=== PATIENT | female | born 1965 | race African-American/Black ===

== ENCOUNTER → 2016-06-17 | Outpatient (CLI) | payer MEDICARE, MEDICAID ==
[~2016-06-17] MED LIST: CALTTAB PO; CYCL5TAB PO; HYDR-3516 PO; IBUP800T23 PO; PRIM250T5 PO; TRAM50TA PO
--- NOTE | 2016-06-17 19:09 | MG ---
cc: GISELA PETERSEN MD Lab No: Date: 06/17/2016 Age: Sex: F Race: EEG NUMBER [id number] DATE OF 1965 INDICATION A 51-year-old, history of seizures, poly frequency EEG with increased beta frequencies noted occurring in a generalized fashion. Otherwise 7-9 Hz posterior rhythm. Paroxysmal bursts of 2 Hz delta activity occurring by a synchronous fashion. Myogenic artifact noted. Did go into stage II sleep with attenuation slowing of background, increased spindle type of activity. Small sharp wave almost spike wave appearance noted in the frontal channels epoch 52. Reasonable driving with photic stimulation. Frontal myogenic artifact noted towards the latter part of the recording. Single lead EKG showing sinus rhythm. INTERPRETATION Poly frequency EEG which may be secondary to psychotropic medications, awake sleep state. Mild nonspecific change in the frontal region noted. No active seizures. Clinical correlation. Gisela Petersen MD MG/KK /5:41 PM /6:58 PM
== END ==
LOC: HEEG 07:36
PROVIDERS: ATTEND Psychiatry & Neurology Neurology
DX: S06.0X0A Concussion without loss of consciousness, initial encounter (principal)
CPT/HCPCS: 95819

== ENCOUNTER 2016-07-28 08:48 | Emergency (ER) | payer MEDICARE, OTHER ==
[~2016-07-28] VITALS: Ht 180.3 cm; Wt 85.0 kg
[~2016-07-28 08:48] MED LIST changes: -IBUP800T23 PO
[2016-07-28 08:51] VITALS: BP 111/70; PULSE 79; RESP 16; TEMP 98.2; O2SAT 100
--- NOTE | 2016-07-28 09:08 | PD ---
HPI . Left arm pain for over 3 weeks Chief Complaint: Pain: Acute or Chronic Time Seen by Provider: 09:08 Travel History International Travel<30 days: No Contact w/Intl Traveler<30days: No Traveled to known affect area: No History of Present Illness HPI 51-year-old female with history of seizures and chronic pain here with complaints of left arm pain. Patient tells me that she follows with Dr. Goetz for her seizures and chronic pain. She is complaining of left upper arm pain that started approximately 3 weeks ago. She has not seen Dr. Goetz for this. She does not exactly have a primary care provider and says that she only uses Dr. Goetz for her issues. She denies any mechanism of injury. She 's pointing to pain deep within the arm and thinks it could possibly be arthritis. Last seizure > 3 years ago. PFSH Past Medical History Autoimmune Disease: Yes (HX HIV; PT DENIES) Blood Disorders: No Cancer: No Cardiovascular Problems: No Diminished Hearing: No Endocrine: No Gastrointestinal Disorders: Yes Genitourinary: No Immune Disorder: No Implanted Vascular Access Dvce: No Musculoskeletal: No Neurologic: Yes Psychiatric: No Reproductive: No Respiratory: No Seizures: Yes Ulcer: Yes PNEUMOCCOCAL Vaccine (Year): 1 ?: Not : 4 Para: 1 Miscarriage: 3 : 0 Ovarian Cysts: Yes (FIBROID TUMORS REMOVED) Tubal Ligation: Yes Past Surgical History Abdominal Surgery: Yes (REMOVAL OF FIBROID TUMOR BILATERAL TUBAL INTERRUPTION) AICD: No Hysterectomy: Yes Pacemaker: No Other Surgery: No Social History Alcohol Use: No Tobacco Use: No Substance Use: No Allergies-Medications (Allergen,Severity, Reaction): Coded Allergies: Aspirin (Verified Allergy, Intermediate, UPSET STOMACH, 07/28/16) Morphine (Verified Adverse Reaction, Intermediate, HIVES, 07/28/16) Reported Meds & Prescriptions Reported Meds & Active Scripts Active Ibuprofen 800 Mg Tab 800 Mg PO TID Caltrate 600+D (Calcium Carbonate-Cholecalciferol) 600-800 Mg-Unit Tab 1 Tab PO BID Reported Primidone 250 Mg Tab 250 Mg PO TID Flexeril (Cyclobenzaprine HCl) 5 Mg Tab 5 Mg PO TID Hydrocodone-Acetaminophen 5-325 mg Tab 1 Tab PO Q6H PRN Review of Systems General / Constitutional: No: Fever Eyes: No: Visual changes HENT: No: Headaches Cardiovascular: No: Chest Pain or Discomfort Respiratory: No: Shortness of Breath Gastrointestinal: No: Abdominal Pain Genitourinary: No: Dysuria Musculoskeletal: Positive: Pain (left arm pain) Skin: No Rash Neurologic: No: Weakness Psychiatric: No: Depression Endocrine: No: Polydipsia Hematologic/Lymphatic: No: Easy Bruising Physical Exam Narrative GENERAL: AAO x 3, no acute distress, Well-nourished, well-developed patient. SKIN: Warm and dry. No visible rashes or bruising. HEAD: Normocephalic and atraumatic. EYES: No scleral icterus. No injection or drainage. ENT: No nasal drainage noted. Airway patent. NECK: Supple, trachea midline. No JVD. CARDIOVASCULAR: Regular rate and rhythm without murmurs, gallops, or rubs. RESPIRATORY: Breath sounds equal bilaterally. No accessory muscle use. No rhonchi or rales. GASTROINTESTINAL: Visual inspection normal EXTREMITIES: No cyanosis or edema. Full range of motion bilateral arms. Tenderness to palpation in the left arm out of proportion to palpation. Hands move without difficulty. BACK: Nontender without obvious deformity. No CVA tenderness. PSYCH: AAO x 3, normal affect. Data Data Last Documented VS Vital Signs Date Time Temp Pulse Resp B/P Pulse Ox O2 Delivery O2 Flow Rate FiO2 07/28/16 08:51 98.2 79 16 111/70 100 MDM Medical Decision Making Medical Screen Exam Complete: Yes Emergency Medical Condition: Yes Medical Record Reviewed: Yes Differential Diagnosis left arm pain, OA, less likely fracture, drug seeking behavior Narrative Course 51-year-old female with history of seizures and chronic pain here with complaints of left arm pain. Patient tells me that she follows with Dr. Goetz for her seizures and chronic pain. She is complaining of left upper arm pain that started approximately 3 weeks ago. She has not seen Dr. Goetz for this. She does not exactly have a primary care provider and says that she only uses Dr. Goetz for her issues. She denies any mechanism of injury. She 's pointing to pain deep within the arm and thinks it could possibly be arthritis. Patient seen and examined. On examination she does not have any significant findings for explanation of her left arm pain. She does not have any cardiac symptoms or other complaints. I do not believe she has a fracture, however I discussed with her that I will go ahead and check an x-ray to rule out any type of bony abnormality. We discussed pain medications and she is wanting to know if I will provide her with Lortab. She is requesting a refill as she ran out of her medications. I explained to her that I'm not able to refill these meds and she declined the x -ray. She says, "If you aint' gonna give me lortabs, I might as well go." I explained if there is a fracture, I will provide analgesia. She then says, "I know it's not broken." I offered her Ibuprofen 800 mg for inflammation and she agreed. I advised her to follow-up with Dr. Goetz for further refills on her pain medications. Patient verbalized understanding of instructions, questions were answered, and thanked me for their care. I advised them if their condition worsens, please return to the nearest emergency room for further care. Diagnosis Primary Impression: Arm pain, left Patient Instructions: General Instructions Additional Instructions: Please return to emergency department if your symptoms return or worsen. Follow up with your primary care provider. Take medications as prescribed. Med/Other Pt SpecificInfo: Prescription(s) given Scripts Ibuprofen 800 Mg Qol587 Mg PO TID #21 TAB Prov:Bre Landis MD 07/28/16 Disposition: 01 DISCHARGE HOME Condition: Stable Dana Romero Jul 28, 2016 09:08
[2016-07-28] MEDS ORDERED: IBUP800T23 PO (09:13)
== END 2016-07-28 09:30 | disposition home or self-care (01) ==
LOC: NEPK 08:48
DX: M79.602 Pain in left arm (principal); R56.9 Unspecified convulsions
CPT/HCPCS: 99283

== ENCOUNTER 2016-10-02 20:20 | Emergency (ER) | payer MEDICARE, OTHER ==
[~2016-10-02] VITALS: Ht 167.6 cm; Wt 82.0 kg
[~2016-10-02 20:20] MED LIST changes: +IBUP800T23 PO; -TRAM50TA PO
[2016-10-02 20:23] VITALS: BP 115/76; PULSE 76; RESP 15; TEMP 98.4; O2SAT 99
--- NOTE | 2016-10-02 21:08 | PD ---
HPI Chief Complaint: Wound/Suture/Staple Re-Check Time Seen by Provider: 20:51 Travel History International Travel<30 days: No Contact w/Intl Traveler<30days: No Traveled to known affect area: No History of Present Illness HPI Patient comes in requesting sutures removed from her left lower extremity were placed 7 days ago. Patient denies any complaints or concerns with them other than wanting to have them removed. Patient states that they were placed at a different ER after she fell off the back of a truck. She reports she's been keeping them dry and clean as possible using soap and water. Denies any fevers or pain. Denies any drainage. History Past Medical Histgory Hx Cancer: No Social History Alcohol Use: No Tobacco Use: No Allergies-Medications (Allergen,Severity, Reaction): Coded Allergies: Aspirin (Verified Allergy, Intermediate, UPSET STOMACH, 10/02/16) Morphine (Verified Adverse Reaction, Intermediate, HIVES, 10/02/16) Reported Meds & Prescriptions Reported Meds & Active Scripts Active Ibuprofen 800 Mg Tab 800 Mg PO TID Caltrate 600+D (Calcium Carbonate-Cholecalciferol) 600-800 Mg-Unit Tab 1 Tab PO BID Reported Primidone 250 Mg Tab 250 Mg PO TID Flexeril (Cyclobenzaprine HCl) 5 Mg Tab 5 Mg PO TID Hydrocodone-Acetaminophen 5-325 mg Tab 1 Tab PO Q6H PRN Review of Systems Except as stated in HPI: all other systems reviewed are Neg Physical Exam Narrative GENERAL: Well-developed, well nourished, in no acute distress, and non-ill appearing. SKIN: Focused skin assessment warm and dry. Sutures noted left lower leg just distal to the knee anterior aspect of the dry clean intact, but do not appear ready to come out this time. They're afebrile, nontender, no fluctuation, without crepitus, nonerythematous, and without drainage. HEAD: Atraumatic. Normocephalic. EYES: Pupils equal and round. EOMI. No scleral icterus. No injection or drainage. ENT: No nasal bleeding or discharge. Mucous membranes pink and moist. NECK: Trachea midline. Supple. No nuclear rigidity. RESPIRATORY: No accessory muscle use. No respiratory distress. MUSCULOSKELETAL: No obvious deformities. No clubbing. No cyanosis. No edema. Full range of motion. NEUROLOGICAL: Awake and alert. No obvious cranial nerve deficits. Motor grossly within normal limits. Normal speech. PSYCHIATRIC: Appropriate mood and affect; insight and judgment normal. Data Data Last Documented VS Vital Signs Date Time Temp Pulse Resp B/P Pulse Ox O2 Delivery O2 Flow Rate FiO2 10/02/16 20:23 98.4 76 15 115/76 99 Room Air MDM Medical Screen Exam Complete: Yes Emergency Medical Condition: No Narrative Course History and physical exam findings are not consistent with an emergent medical condition. She was given the option of receiving additional care, but has declined. Therefore the appropriate counseling recommendations were discussed with the patient and she was instructed to follow-up with her primary care physician as soon as possible for reevaluation. Patient was also informed of community resources from which she can obtain additional care. She is agreeable and verbalizes an understanding of the proposed plan. The patient states she will immediately return to the emergency department if her current complaints do not improve, new symptoms arise, or emergent condition develops. Patient ambulated out of the emergency department without difficulty. Primary Impression: Encounter for medical screening examination Elliot Ramos Oct 02, 2016 21:08
== END 2016-10-02 21:07 | disposition left against medical advice (07) ==
LOC: NEPK 20:20
DX: Z48.02 Encounter for removal of sutures (principal)
CPT/HCPCS: 99281

== ENCOUNTER 2017-01-05 16:16 | Emergency (ER) | payer MEDICARE, MEDICAID ==
[~2017-01-05] VITALS: Ht 167.6 cm; Wt 85.0 kg
[2017-01-05 16:18] VITALS: BP 123/72; PULSE 80; RESP 13; TEMP 98.6; O2SAT 95
--- NOTE | 2017-01-05 18:12 | PD ---
HPI Chief Complaint: Back/ Neck Pain or Injury Time Seen by Provider: 17:59 Travel History International Travel<30 days: No Contact w/Intl Traveler<30days: No Traveled to known affect area: No History of Present Illness HPI 52-year-old Af[place] female presents the emergency department with reported slip and fall on a wet floor at the [employer] 2 days ago. Patient now complaining of left lower back and hip pain. Patient denies weakness, numbness, tingling, or changes in her bowel or bladder. Pain is 10 out of 10. Pain is worse with movement. Pain is worse with palpation. Patient is allergic to aspirin and morphine. Patient states she is unable to take NSAIDs as they upset her stomach. PFSH Past Medical History Autoimmune Disease: Yes (HX HIV; PT DENIES) Blood Disorders: No Cancer: No Cardiovascular Problems: No Diminished Hearing: No Endocrine: No Gastrointestinal Disorders: Yes Genitourinary: No Immune Disorder: No Implanted Vascular Access Dvce: No Musculoskeletal: No Neurologic: Yes Psychiatric: No Reproductive: No Respiratory: No Seizures: Yes Ulcer: Yes PNEUMOCCOCAL Vaccine (Year): 1 : 4 Para: 1 Miscarriage: 3 : 0 Ovarian Cysts: Yes (FIBROID TUMORS REMOVED) Tubal Ligation: Yes Past Surgical History Abdominal Surgery: Yes (REMOVAL OF FIBROID TUMOR BILATERAL TUBAL INTERRUPTION) AICD: No Hysterectomy: Yes Pacemaker: No Other Surgery: No Social History Alcohol Use: No Tobacco Use: No Substance Use: No Allergies-Medications (Allergen,Severity, Reaction): Coded Allergies: aspirin (Unverified Allergy, Intermediate, UPSET STOMACH, 11/12/16) morphine (Unverified Adverse Reaction, Intermediate, HIVES, 11/12/16) Reported Meds & Prescriptions Reported Meds & Active Scripts Active Ibuprofen 800 Mg Tab 800 Mg PO TID Caltrate 600+D (Calcium Carbonate-Cholecalciferol) 600-800 Mg-Unit Tab 1 Tab PO BID Reported Primidone 250 Mg Tab 250 Mg PO TID Flexeril (Cyclobenzaprine HCl) 5 Mg Tab 5 Mg PO TID Hydrocodone-Acetaminophen 5-325 mg Tab 1 Tab PO Q6H PRN Review of Systems Except as stated in HPI: all other systems reviewed are Neg General / Constitutional: No: Fever Eyes: No: Visual changes HENT: No: Headaches Cardiovascular: No: Chest Pain or Discomfort Respiratory: No: Shortness of Breath Gastrointestinal: No: Abdominal Pain Genitourinary: No: Dysuria Musculoskeletal: Positive: Myalgias, Arthralgias, Limited ROM, Pain Skin: No Rash Neurologic: No: Weakness Psychiatric: No: Depression Endocrine: No: Polydipsia Hematologic/Lymphatic: No: Easy Bruising Physical Exam Narrative GENERAL: Patient appears in no acute distress. SKIN: Warm and dry. Normal color. Normal turgor. No abrasions. No open wounds. No ecchymosis. HEAD: Atraumatic. Normocephalic. EYES: Pupils equal and round. No scleral icterus. No injection or drainage. ENT: No nasal bleeding or discharge. Mucous membranes pink and moist. Pharynx is clear. Airway is patent. NECK: Trachea midline. No bony tenderness or step-off. Range of motion is full. CARDIOVASCULAR: Regular rate and rhythm. RESPIRATORY: No accessory muscle use. Clear to auscultation. Breath sounds equal bilaterally. GASTROINTESTINAL: Abdomen soft, non-tender, nondistended. Hepatic and splenic margins not palpable. MUSCULOSKELETAL: Extremities without clubbing, cyanosis, or edema. No obvious deformities. Patient complains of soft tissue tenderness with palpation of the left lower thoracic and lumbar paraspinous regions. Patient complains of pain with palpation to the left sacroiliac and left buttock and hip region. Deep tendon reflexes are 2+ and equal throughout bilaterally. Negative straight leg raise pain bilaterally. NEUROLOGICAL: Awake and alert. No obvious cranial nerve deficits. Motor grossly within normal limits. Five out of 5 muscle strength in the arms and legs. Normal speech. PSYCHIATRIC: Appropriate mood and affect; insight and judgment normal. Data Data Last Documented VS Vital Signs Date Time Temp Pulse Resp B/P (MAP) Pulse Ox O2 Delivery O2 Flow Rate FiO2 01/05/17 16:18 98.6 80 13 123/72 (89) 95 MDM Medical Decision Making Medical Screen Exam Complete: Yes Emergency Medical Condition: Yes Differential Diagnosis Reported slip and fall. Lumbar strain. Left hip and buttock contusion. Narrative Course Patient specifically states that she can take Lortab and Soma. Radiographic imaging is not felt warranted based on my history and physical. Patient is given a prescription for prednisone 20 mg daily for the next 5 days. Patient is given Flexeril 5 mg 3 times a day #15. Patient is given tramadol 50 mg 1 tablet every 6 hours when necessary pain #12. Patient should use heat followed by ice as needed. Patient follow-up with her my care physician as needed. Diagnosis Primary Impression: Fall from slipping on slippery surface Qualified Codes: W01.0XXA - Fall on same level from slipping, tripping and stumbling without subsequent striking against object, initial encounter Additional Impressions: Acute lumbar myofascial strain Qualified Codes: S39.012A - Strain of muscle, fascia and tendon of lower back , initial encounter Muscle strain of left hip Qualified Codes: S76.012A - Strain of muscle, fascia and tendon of left hip, initial encounter Contusion Qualified Codes: S80.12XA - Contusion of left lower leg, initial encounter Referrals: [facility] Patient Instructions: Contusion in Adults (ED), General Instructions, Low Back Strain (ED), Lower Back Exercises (ED) Additional Instructions: Radiographic imaging is not felt warranted based on my history and physical. Patient is given a prescription for prednisone 20 mg daily for the next 5 days. Patient is given Flexeril 5 mg 3 times a day #15. Patient is given tramadol 50 mg 1 tablet every 6 hours when necessary pain #12. Patient should use heat followed by ice as needed. Patient follow-up with her my care physician as needed. Med/Other Pt SpecificInfo: Prescription(s) given Disposition: 01 DISCHARGE HOME Condition: Stable Jose Vázquez Jan 05, 2017 18:12
[2017-01-05] MEDS ORDERED: TRAM50TA PO (18:14)
[2017-01-05] MEDS ORDERED: CYCL5TAB PO (18:14)
[2017-01-05] MEDS ORDERED: PRED20 PO (18:14)
== END 2017-01-05 18:15 | disposition home or self-care (01) ==
LOC: NEPK 16:16
DX: S76.012A Strain of muscle, fascia and tendon of left hip, initial encounter (principal); S39.012A Strain of muscle, fascia and tendon of lower back, initial encounter; S80.12XA Contusion of left lower leg, initial encounter; W01.0XXA Fall on same level from slipping, tripping and stumbling without subsequent striking against object, initial encounter; Y92.89 Other specified places as the place of occurrence of the external cause
CPT/HCPCS: 99284

== ENCOUNTER 2017-01-19 19:50 | Emergency (ER) | payer OTHER, MEDICARE, MEDICAID ==
[~2017-01-19] VITALS: Ht 167.6 cm; Wt 83.0 kg
[~2017-01-19 19:50] MED LIST changes: +IBUP1TAB7 PO; -IBUP800T23 PO; +PRED20 PO; +TRAM50TA PO
[2017-01-19 19:51] VITALS: BP 179/74; PULSE 79; RESP 18; TEMP 98; O2SAT 97
[2017-01-19] MEDS ORDERED: ORPHENADRINE INJ 60 MG/2 ML AMP IM ONE (20:30)
[2017-01-19] MEDS ORDERED: CYCL5TAB PO (20:40)
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
== END 2017-01-19 21:00 | disposition home or self-care (01) ==
LOC: NEPK 19:50
DX: M54.5 Low back pain (principal); M79.605 Pain in left leg; M54.2 Cervicalgia; M79.1 Myalgia; M19.90 Unspecified osteoarthritis, unspecified site; R56.9 Unspecified convulsions; V43.92XA Unspecified car occupant injured in collision with other type car in traffic accident, initial encounter; Z21 Asymptomatic human immunodeficiency virus [HIV] infection status; Z79.899 Other long term (current) drug therapy
CPT/HCPCS: 96372; 99284; J2360

== ENCOUNTER 2017-02-17 17:44 | Emergency (ER) | payer MEDICARE, MEDICAID ==
[~2017-02-17] VITALS: Ht 195.6 cm; Wt 82.0 kg
[2017-02-17 17:47] VITALS: BP 135/78; PULSE 69; RESP 16; TEMP 97.6; O2SAT 99
[2017-02-17] MEDS ORDERED: PRIM50TA5 PO (18:37)
[2017-02-17 18:38] VITALS: BP 126/66; PULSE 79; RESP 18; O2SAT 97
--- NOTE | 2017-02-17 18:42 | PD ---
HPI Chief Complaint: Allergic/Adverse Reaction Time Seen by Provider: 18:40 Travel History International Travel<30 days: No Contact w/Intl Traveler<30days: No Traveled to known affect area: No History of Present Illness HPI 52 YO F presents to the ED for evaluation of swollen lips for ~12 hours. The patient thinks it may be due to eating pigs feet around 9:00 last night. She denies breathing difficulties, itchy throat, fevers, nausea. She denies known allergy to pork. She does not take MADELYN inhibitor's. She treated at home by rubbing alcohol on her lips which she states has resolved the swelling in the lower lip but the upper lip is worse. PFSH Past Medical History Arthritis: Yes Autoimmune Disease: Yes (HX HIV; PT DENIES) Blood Disorders: No Cancer: No Cardiovascular Problems: No Diminished Hearing: No Endocrine: No Gastrointestinal Disorders: No Genitourinary: No Immune Disorder: No Implanted Vascular Access Dvce: No Musculoskeletal: No Neurologic: Yes Psychiatric: No Reproductive: No Respiratory: No Immunizations Current: No Seizures: Yes Ulcer: Yes Tetanus Vaccination: > 5 Years PNEUMOCCOCAL Vaccine (Year): 1 ?: Not : 4 Para: 1 Miscarriage: 3 : 0 Ovarian Cysts: Yes (FIBROID TUMORS REMOVED) Tubal Ligation: Yes Past Surgical History Abdominal Surgery: Yes AICD: No Hysterectomy: Yes Pacemaker: No Other Surgery: No Social History Alcohol Use: No Tobacco Use: No Substance Use: No Allergies-Medications (Allergen,Severity, Reaction): Coded Allergies: aspirin (Unverified Allergy, Intermediate, UPSET STOMACH, 02/17/17) morphine (Unverified Adverse Reaction, Intermediate, HIVES, 02/17/17) Reported Meds & Prescriptions Reported Meds & Active Scripts Active Medrol Dosepak (Methylprednisolone) 4 Mg Dspk 4 Mg PO DIRECTED Per Pharmacist direction Reported Primidone 50 Mg Tab 250 Mg PO BID Review of Systems Except as stated in HPI: all other systems reviewed are Neg Physical Exam Narrative GENERAL: Well-nourished, well-developed female in no acute distress. SKIN: Warm and dry. Edema of the upper lip. HEAD: Normocephalic. Atraumatic. EYES: No scleral icterus. No injection or drainage. PERRLA. EOMI. ENT: Pearly perez tympanic membranes bilaterally. Nasal mucosa is moist. Oropharynx without erythema, edema or exudate. Floor of the mouth is soft. Uvula midline. Airway patent. NECK: Supple, trachea midline. No JVD or lymphadenopathy. CARDIOVASCULAR: Regular rate and rhythm without murmurs, gallops, or rubs. RESPIRATORY: Breath sounds clear and equal bilaterally. No accessory muscle use. GASTROINTESTINAL: Abdomen soft, non-tender, nondistended. + Bowel sounds MUSCULOSKELETAL: No cyanosis, or edema. Patient noted to ambulate with normal gait BACK: Nontender without obvious deformity. No CVA tenderness. Data Data Last Documented VS Vital Signs Date Time Temp Pulse Resp B/P (MAP) Pulse Ox O2 Delivery O2 Flow Rate FiO2 02/17/17 20:45 56 126/66 02/17/17 18:38 18 97 Room Air 02/17/17 17:47 97.6 Orders Orders Ecg Monitoring (02/17/17 18:56) Iv Access Insert/Monitor (02/17/17 18:56) Oximetry (02/17/17 18:56) Diphenhydramine Inj (Benadryl Inj) (02/17/17 19:00) Methylprednisolone So Succ Inj (Solumedr (02/17/17 19:00) Sodium Chlor 0.9% 1000 Ml Inj (Ns 1000 M (02/17/17 18:56) Sodium Chloride 0.9% Flush (Ns Flush) (02/17/17 19:00) Epinephrine (1:1000) Inj (Adrenalin (1:1 (02/17/17 20:45) MDM Medical Decision Making Medical Screen Exam Complete: Yes Emergency Medical Condition: Yes Differential Diagnosis Angioedema versus allergic reaction versus reactive airway disease versus other Narrative Course 52 YO F presents to the ED for evaluation of swollen lips for ~12 hours. The patient thinks it may be due to eating pigs feet around 9:00 last night. She denies breathing difficulties, itchy throat, fevers, nausea. She denies known allergy to pork. She does not take MADELYN inhibitor's. She treated at home by rubbing alcohol on her lips which she states has resolved the swelling in the lower lip but the upper lip is worse. Vitals reviewed. There is edema of the upper lip but the airway is patent. Uvula midline. No appreciable intraoral edema. Floor the mouth is soft. IV was established. Patient was administered 25 mg of Benadryl, 125 mg Solu-Medrol and 1 L normal saline IV. On recheck is no improvement of the upper lip edema. I doubt that this is angioedema. However, we'll administer 0.3 mg epinephrine IM. She was provided a prescription for a Medrol dose pack, instructed to avoid pork, take medication as prescribed, return to the ED for worsening symptoms. She indicated understanding of the instructions and is agreeable to the care plan. She is stable and discharged home. Diagnosis Primary Impression: Swelling of upper lip Additional Impression: Allergic reaction Qualified Codes: T78.40XA - Allergy, unspecified, initial encounter Referrals: Primary Care Physician Patient Instructions: Angioedema (ED), General Allergic Reaction (ED), General Instructions Additional Instructions: Past, hydrate. Avoid pork products and other known allergens. Return to normal, gentle activity as tolerated. Begin steroids tomorrow. Take all medication as prescribed, even if symptoms resolve. Follow-up with your primary care provider. Return to the ED for worsening symptoms or any urgent or emergent medical condition. Med/Other Pt SpecificInfo: Prescription(s) given Scripts Methylprednisolone Dosepak (Medrol Dosepak) 4 Mg Dspk 4 MG PO DIRECTED, #1 DSPK 0 Refills Per Pharmacist direction Prov: Bre Landis MD 02/17/17 Disposition: 01 DISCHARGE HOME Condition: Stable Chantal Catherine Feb 17, 2017 18:42
[2017-02-17] MEDS ORDERED: SODIUM CHLOR 0.9% 1000 ML INJ 1,000 ML IV SCH (18:56)
[2017-02-17] MEDS ORDERED: SODIUM CHLORIDE 0.9% FLUSH 10 ML FLUSH IV FLUSH PRN (19:00)
[2017-02-17] MEDS ORDERED: diphenhydrAMINE HCL 50 MG/ML VIAL IVP ONE (19:00)
[2017-02-17] MEDS ORDERED: methylPREDNISolone SOD SUCC 125 MG/2 ML VIAL IV PUSH ONE (19:00)
[2017-02-17 20:45] VITALS: BP 126/66; PULSE 56
[2017-02-17] MEDS ORDERED: EPINEPHrine HCL (1:1000) 1 MG/ML VIAL IM ONE (20:45)
[2017-02-17] MEDS ORDERED: MEDR4PAK PO (20:49)
== END 2017-02-17 21:51 | disposition home or self-care (01) ==
LOC: NEPC 17:44
DX: T78.40XA Allergy, unspecified, initial encounter (principal); R22.0 Localized swelling, mass and lump, head; M19.90 Unspecified osteoarthritis, unspecified site; R56.9 Unspecified convulsions; Z79.899 Other long term (current) drug therapy; Z88.8 Allergy status to other drugs, medicaments and biological substances; Z21 Asymptomatic human immunodeficiency virus [HIV] infection status
CPT/HCPCS: 96361; 96372; 96374; 96375; 99284; J0171; J1200; J2930; J7030

== ENCOUNTER 2017-06-19 18:38 | Emergency (ER) | payer MEDICARE, MEDICAID ==
[~2017-06-19] VITALS: Ht 188 cm; Wt 85.0 kg
[~2017-06-19 18:38] MED LIST changes: -CALTTAB PO; -CYCL5TAB PO; -HYDR-3516 PO; -IBUP1TAB7 PO; +MEDR4PAK PO; -PRED20 PO; -PRIM250T5 PO; +PRIM50TA5 PO; -TRAM50TA PO
[2017-06-19 18:47] VITALS: BP 114/58; PULSE 78; RESP 15; TEMP 98.1; O2SAT 100
[2017-06-19] MEDS ORDERED: NYST15T TOPICAL (19:38)
[2017-06-19] MEDS ORDERED: MUPI2OIN TOPICAL (19:38)
--- NOTE | 2017-06-19 19:38 | PD ---
HPI Chief Complaint: Welfare Worker Problem/Complaint Time Seen by Provider: 19:21 Travel History International Travel<30 days: No Contact w/Intl Traveler<30days: No Traveled to known affect area: No History of Present Illness HPI 52y female presents to the ED c/o a rash in her left groin that has been present for approximately 1 year. She believes that this may related to the fabric of her panties. Says that the area is pruritic. Says that when she scratches the area, she has "pus" from the area. denies shaving the area. Denies any new soaps or lotions. She denies vaginal discharge or vaginal bleeding. Denies any sexual partners in 8-9 years. Hysterectomy "a while ago". Says she has a history of seizures and chronic back pain. She takes primidone and oxycodone. Denies fevers, chills. She has no other complaints today. PFSH Past Medical History Arthritis: Yes Autoimmune Disease: Yes (HX HIV) Blood Disorders: No Cancer: No Cardiovascular Problems: No Diminished Hearing: No Endocrine: No Gastrointestinal Disorders: No Genitourinary: No Immune Disorder: No Implanted Vascular Access Dvce: No Musculoskeletal: No Neurologic: Yes Psychiatric: No Reproductive: No Respiratory: No Immunizations Current: No Seizures: Yes Ulcer: Yes PNEUMOCCOCAL Vaccine (Year): 1 ?: Not : 4 Para: 1 Miscarriage: 3 : 0 Ovarian Cysts: Yes (FIBROID TUMORS REMOVED) Tubal Ligation: Yes Past Surgical History Abdominal Surgery: Yes AICD: No Hysterectomy: Yes Pacemaker: No Other Surgery: No Social History Alcohol Use: No Tobacco Use: No Substance Use: No Allergies-Medications (Allergen,Severity, Reaction): Coded Allergies: aspirin (Unverified Allergy, Intermediate, UPSET STOMACH, 02/17/17) morphine (Unverified Adverse Reaction, Intermediate, HIVES, 02/17/17) Reported Meds & Prescriptions Reported Meds & Active Scripts Active Mupirocin Topical (Mupirocin) 2 % Oint 1 Applic TOPICAL BID 7 Days Nystatin Topical (Nystatin) 100,000 unit/gm Cream 1 Applic TOPICAL BID 7 Days Medrol Dosepak (Methylprednisolone) 4 Mg Dspk 4 Mg PO DIRECTED Per Pharmacist direction Reported Primidone 50 Mg Tab 250 Mg PO BID Review of Systems Except as stated in HPI: all other systems reviewed are Neg Physical Exam Narrative GENERAL: Well-nourished, well-developed patient. SKIN: Focused skin assessment warm/dry. HEAD: Normocephalic. EYES: No scleral icterus. No injection or drainage. NECK: Supple, trachea midline. No JVD or lymphadenopathy. CARDIOVASCULAR: Regular rate and rhythm without murmurs, gallops, or rubs. Groin-left groin macerated, no exudate, no obvious excoriations. Right groin area without rashes. MUSCULOSKELETAL: No cyanosis, or edema. BACK: Nontender without obvious deformity. No CVA tenderness. Data Data Last Documented VS Vital Signs Date Time Temp Pulse Resp B/P (MAP) Pulse Ox O2 Delivery O2 Flow Rate FiO2 06/19/17 18:47 98.1 78 15 114/58 (76) 100 Orders Orders Ed Discharge Order (06/19/17 19:39) MDM Medical Decision Making Medical Screen Exam Complete: Yes Emergency Medical Condition: Yes Differential Diagnosis Intertrigo, impetigo, contact dermatitis Narrative Course 52y female presents to the ED c/o a rash in her left groin that has been present for approximately 1 year. She believes that this may related to the fabric of her panties. Says that the area is pruritic. Says that when she scratches the area, she has "pus" from the area. denies shaving the area. Denies any new soaps or lotions. She denies vaginal discharge or vaginal bleeding. Denies any sexual partners in 8-9 years. Hysterectomy "a while ago". Says she has a history of seizures and chronic back pain. She takes from the donor and oxycodone. Denies fevers, chills. She has no other complaints today. Vital signs stable. Physical exam findings consistent with a rash-contact dermatitis versus intertrigo versus impetigo. No masses or abscess. Patient will be discharged with topical nystatin and mupirocin. Explained to the patient that I cannot tell her if her rash is a result of the fabric of her panties, especially since her rash is unilateral. I advised her to follow-up with dermatology for further evaluation. Keep area clean and dry. Return for worsening or persistent symptoms. Diagnosis Primary Impression: Rash Referrals: Roller Repairer Additional Instructions: Take all medications as prescribed. As discussed the recommend following up with a segmental paver installer for further evaluation. If your symptoms persist or worsen return to the emergency department. Avoid shaving, keep area clean and dry Scripts Mupirocin Topical (Mupirocin Topical) 2 % Oint 1 APPLIC TOPICAL BID for Mgmt Bacterial Infection for 7 Days, #1 TUBE 0 Refills Prov: Joby Oconnell MD 06/19/17 Nystatin Topical (Nystatin Topical) 100,000 unit/gm Cream 1 APPLIC TOPICAL BID for Infection for 7 Days, #15 GM 0 Refills Prov: Joby Oconnell MD 06/19/17 Disposition: 01 DISCHARGE HOME Condition: Stable Noemí Vail Jun 19, 2017 19:38
== END 2017-06-19 20:00 | disposition home or self-care (01) ==
LOC: NEPC 18:38
DX: R21 Rash and other nonspecific skin eruption (principal)
CPT/HCPCS: 99283

== ENCOUNTER 2017-07-12 20:29 | Emergency (ER) | payer MEDICAID, MEDICARE ==
[~2017-07-12] VITALS: Ht 167.6 cm; Wt 82.0 kg
[~2017-07-12 20:29] MED LIST changes: +MUPI2OIN TOPICAL; +NYST15T TOPICAL
[2017-07-12 20:33] VITALS: BP 135/75; PULSE 74; RESP 18; TEMP 98.6; O2SAT 99
--- NOTE | 2017-07-12 20:46 | PD ---
HPI Chief Complaint: Fall Time Seen by Provider: 20:42 Travel History International Travel<30 days: No Contact w/Intl Traveler<30days: No Traveled to known affect area: No History of Present Illness HPI 52-year-old female presents emergency department for evaluation of right hip pain following a trip and fall that occurred on July 07 at the [facility]. Patient tripped on a rug. She landed on her hip. She states she has had low back pain and right hip pain since. She did not strike her head or lose consciousness. She has had no focal deficits or weakness. She has been ambulatory but states at times it hurts her right hip. Her right hip is a constant ache. Moderate in severity. No fevers or chills. No other injury. No other symptoms to report. PFSH Past Medical History Arthritis: Yes Autoimmune Disease: Yes (HX HIV) Blood Disorders: No Cancer: No Cardiovascular Problems: No Diminished Hearing: No Endocrine: No Gastrointestinal Disorders: No Genitourinary: No Immune Disorder: No Implanted Vascular Access Dvce: No Musculoskeletal: No Neurologic: Yes Psychiatric: No Reproductive: No Respiratory: No Immunizations Current: No Seizures: Yes Ulcer: Yes Tetanus Vaccination: < 5 Years Influenza Vaccination: No PNEUMOCCOCAL Vaccine (Year): 1 ?: Not : 4 Para: 1 Miscarriage: 3 : 0 Ovarian Cysts: Yes (FIBROID TUMORS REMOVED) Tubal Ligation: Yes Past Surgical History Abdominal Surgery: Yes AICD: No Hysterectomy: Yes Pacemaker: No Other Surgery: No Social History Alcohol Use: No Tobacco Use: No Substance Use: No Allergies-Medications (Allergen,Severity, Reaction): Coded Allergies: aspirin (Unverified Allergy, Intermediate, UPSET STOMACH, 07/12/17) morphine (Unverified Adverse Reaction, Intermediate, HIVES, 07/12/17) Reported Meds & Prescriptions Reported Meds & Active Scripts Active Ibuprofen 600 Mg Tab 600 Mg PO Q8H PRN Robaxin (Methocarbamol) 500 Mg Tab 500 Mg PO TID PRN Mupirocin Topical (Mupirocin) 2 % Oint 1 Applic TOPICAL BID 7 Days Nystatin Topical (Nystatin) 100,000 unit/gm Cream 1 Applic TOPICAL BID 7 Days Medrol Dosepak (Methylprednisolone) 4 Mg Dspk 4 Mg PO DIRECTED Per Pharmacist direction Reported Primidone 50 Mg Tab 250 Mg PO BID Review of Systems Except as stated in HPI: all other systems reviewed are Neg Physical Exam Narrative GENERAL: Well-nourished, well-developed female patient, ambulatory with a nonantalgic gait no acute distress. SKIN: Focused skin assessment warm/dry. HEAD: Normocephalic. EYES: No scleral icterus. No injection or drainage. NECK: Supple, trachea midline. No JVD or lymphadenopathy. CARDIOVASCULAR: Regular rate and rhythm without murmurs, gallops, or rubs. RESPIRATORY: Breath sounds equal bilaterally. No accessory muscle use. GASTROINTESTINAL: Abdomen soft, non-tender, nondistended. MUSCULOSKELETAL: No cyanosis, or edema. Tenderness elicited palpation of the right anterior lateral hip. No deformity. No shortening or rotation. Distal pulses are palpable. BACK: Nontender without obvious deformity. No CVA tenderness. Data Data Last Documented VS Vital Signs Date Time Temp Pulse Resp B/P (MAP) Pulse Ox O2 Delivery O2 Flow Rate FiO2 07/12/17 20:33 98.6 74 18 135/75 (95) 99 Orders Orders Hip, Uni(Ap&Lat) W Ap Pelvis (07/12/17 ) Ed Discharge Order (07/12/17 21:34) MDM Medical Decision Making Medical Screen Exam Complete: Yes Emergency Medical Condition: Yes Medical Record Reviewed: Yes Differential Diagnosis Contusion versus fracture versus sprain Narrative Course 52-year-old female presents emergency department for evaluation right hip pain. Patient fell on July 07. She has been ambulatory without difficulty since. X -ray imaging of the right hip confirms no acute bony abnormality. Results are discussed with the patient. She is encouraged to follow-up with a primary care provider and return immediately with any acute worsening symptoms. Diagnosis Primary Impression: Hip pain Qualified Codes: M25.551 - Pain in right hip Additional Impression: Low back strain Qualified Codes: S39.012A - Strain of muscle, fascia and tendon of lower back , initial encounter Referrals: Primary Care Physician Patient Instructions: General Instructions, Low Back Strain (ED) Additional Instructions: Ice and or warm moist heat may help to alleviate symptoms Follow up with a primary care provider Return to ED with acute worsening of symptoms Med/Other Pt SpecificInfo: Prescription(s) given Scripts Ibuprofen (Ibuprofen) 600 Mg Tab 600 MG PO Q8H Y for PAIN, #30 TAB 0 Refills Prov: Deedee Brown 07/12/17 Methocarbamol (Robaxin) 500 Mg Tab 500 MG PO TID Y for MUSCLE SPASM, #20 TAB 0 Refills Prov: Deedee Brown 07/12/17 Disposition: 01 DISCHARGE HOME Condition: Stable Deedee Brown Jul 12, 2017 20:46
--- NOTE | 2017-07-12 21:28 | RADRPT ---
EXAM DATE/TIME: 07/12/2017 21:10 [facility] COMPARISON: No previous studies available for comparison. INDICATIONS : Pain in right hip and lower back post fall 4 days ago. MEDICAL HISTORY : None. SURGICAL HISTORY : Left total hip. ENCOUNTER: Initial ACUITY: 4 - 6 days PAIN SCORE: 7/10 LOCATION: Right Hip. FINDINGS: Examination of the right hip was performed with AP Pelvis. The primary and secondary trabecular cam yamileth of the femoral neck is intact. The hip joint is of normal width without significant sclerosis or bony hypertrophy. The acetabulum is grossly intact. CONCLUSION: Intact pelvis and right hip. Iam Krause MD on July 12, 2017 at 21:26 Board Certified Radiologist. This report was verified electronically.
[2017-07-12] MEDS ORDERED: IBUP-232 PO (21:36)
[2017-07-12] MEDS ORDERED: ROBA500T PO (21:36)
== END 2017-07-12 21:40 | disposition home or self-care (01) ==
LOC: NEPD 20:29
DX: M25.551 Pain in right hip (principal); S39.012A Strain of muscle, fascia and tendon of lower back, initial encounter; W01.0XXA Fall on same level from slipping, tripping and stumbling without subsequent striking against object, initial encounter; Y92.512 Supermarket, store or market as the place of occurrence of the external cause
CPT/HCPCS: 73502; 99283

== ENCOUNTER 2017-08-19 19:56 | Emergency (ER) | payer MEDICAID ==
[~2017-08-19] VITALS: Ht 182.9 cm; Wt 85.0 kg
[~2017-08-19 19:56] MED LIST changes: +IBUP-232 PO; +ROBA500T PO
[2017-08-19 20:36] VITALS: BP 120/65; PULSE 88; RESP 16; TEMP 98.7; O2SAT 99
--- NOTE | 2017-08-19 22:00 | RADRPT ---
EXAM DATE: 08/19/2017 9:23 PM EDT AGE/SEX: 52 years / Female INDICATIONS: Right ankle after falling today. CLINICAL DATA: This is the patient's initial encounter. Patient reports that signs and symptoms have been present for 1 day and indicates a pain score of 10/10. MEDICAL/SURGICAL HISTORY: None. . ORIF of the right tibia with ankita and screws placement. COMPARISON: No prior [facility] exams available for comparison. FINDINGS: 3 view examination of the ankle and a frontal view to the proximal tibia demonstrates indwelling hard nieves including a long intramedullary ankita in the tibia, long lag screw in the distal fibula, and multi ple transverse screws in the distal tibia. There is healed fracture of the distal diametaphysis of th e tibia. The ankle mortise is intact. There is mild soft tissue swelling about the aspect of the ankl e. No radiopaque foreign bodies seen. CONCLUSION: No acute findings. Intact hardware tibia and fibula. Mild medial soft tissue swelling. Electronically signed by: Niels Short MD 08/19/2017 9:58 PM EDT
--- NOTE | 2017-08-19 22:01 | RADRPT ---
EXAM DATE: 08/19/2017 9:28 PM EDT AGE/SEX: 52 years / Female INDICATIONS: Right knee pain after falling today. CLINICAL DATA: This is the patient's initial encounter. Patient reports that signs and symptoms have been present for 1 day and indicates a pain score of 10/10. MEDICAL/SURGICAL HISTORY: None. . ORIF of the right tibia with ankita and screw placement. COMPARISON: No prior [facility] exams available for comparison. FINDINGS: The osseous structures about the knee are grossly intact. No evidence of fracture or dislocation. Int ramedullary ankita in the tibia. The suprapatellar soft tissues are normal in thickness. CONCLUSION: No evidence of recent bony injury. Electronically signed by: Niels Short MD 08/19/2017 9:59 PM EDT
[2017-08-19] MEDS ORDERED: IBUPROFEN 600 MG TAB PO ONE (22:45)
[2017-08-19] MEDS ORDERED: IBUP-232 PO (22:47)
--- NOTE | 2017-08-19 22:51 | PD ---
HPI Chief Complaint: Fall Time Seen by Provider: 22:38 Travel History International Travel<30 days: No Contact w/Intl Traveler<30days: No Traveled to known affect area: No History of Present Illness HPI 52-year-old black female presents emergency department for evaluation of right knee and right ankle pain after a injury this evening chasing her dog. She states that there is kids in the neighborhood harassing her dog. She ran out to the ER and to get her dog. She states that she twisted her right knee and foot. Since then she has had pain in the knee down into the ankle. Pain is moderate. Worse with weightbearing. Some relief with elevation. She denies any popping or cracking. No numbness, tingling or weakness. History of prior right tib-fib fracture. PFSH Past Medical History Arthritis: Yes Autoimmune Disease: Yes (HX HIV) Blood Disorders: No Cancer: No Cardiovascular Problems: No Diminished Hearing: No Endocrine: No Gastrointestinal Disorders: No Genitourinary: No Immune Disorder: No Implanted Vascular Access Dvce: No Musculoskeletal: No Neurologic: Yes Psychiatric: No Reproductive: No Respiratory: No Immunizations Current: No Seizures: Yes Ulcer: Yes Tetanus Vaccination: Unknown Influenza Vaccination: Yes PNEUMOCCOCAL Vaccine (Year): 1 ?: Not : 4 Para: 1 Miscarriage: 3 : 0 Ovarian Cysts: Yes (FIBROID TUMORS REMOVED) Tubal Ligation: Yes Past Surgical History Narrative Surgical Right tib-fib fracture with IM ankita Abdominal Surgery: Yes AICD: No Hysterectomy: Yes Pacemaker: No Other Surgery: No Social History Alcohol Use: No Tobacco Use: No Substance Use: No Allergies-Medications (Allergen,Severity, Reaction): Coded Allergies: aspirin (Unverified Allergy, Intermediate, UPSET STOMACH, 08/19/17) morphine (Unverified Adverse Reaction, Intermediate, HIVES, 08/19/17) Reported Meds & Prescriptions Reported Meds & Active Scripts Active Ibuprofen 600 Mg Tab 600 Mg PO Q8H PRN Robaxin (Methocarbamol) 500 Mg Tab 500 Mg PO TID PRN Mupirocin Topical (Mupirocin) 2 % Oint 1 Applic TOPICAL BID 7 Days Nystatin Topical (Nystatin) 100,000 unit/gm Cream 1 Applic TOPICAL BID 7 Days Medrol Dosepak (Methylprednisolone) 4 Mg Dspk 4 Mg PO DIRECTED Per Pharmacist direction Reported Primidone 50 Mg Tab 250 Mg PO BID Review of Systems General / Constitutional: No: Fever Eyes: No: Visual changes HENT: No: Headaches Cardiovascular: No: Chest Pain or Discomfort Respiratory: No: Shortness of Breath Gastrointestinal: No: Abdominal Pain Genitourinary: No: Dysuria Musculoskeletal: Positive: Arthralgias, Limited ROM, Edema, Pain, No: Myalgias , Weakness Skin: No Rash Neurologic: No: Weakness Psychiatric: No: Depression Endocrine: No: Polydipsia Hematologic/Lymphatic: No: Easy Bruising Physical Exam Narrative GENERAL: This is a well-nourished, well-developed patient, in no apparent distress. SKIN: No rashes, ecchymoses or lesions. Warm and dry. HEAD: Atraumatic. Normocephalic. EYES: PERRL, EOMI, no discharge or injection. No scleral icterus. EARS: Clear NOSE: Nasal turbinates appear normal. THROAT: Mucosa pink and moist. Airway patent. NECK: Trachea midline. supple, moves head freely. LUNGS: Clear to auscultation. CV: Regular in rhythm. ABDOMEN: Soft nontender. EXT: No clubbing cyanosis. Examination of the upper extremities as well as a left lower extremity are unremarkable. The right lower extremity reveals mild swelling in the right knee and right ankle. She has limited range of motion due to pain. There is no gross instability. She has intact sensation with good distal pulses. No pain in the hip. No pain in the foot. Skin is intact. Data Data Last Documented VS Vital Signs Date Time Temp Pulse Resp B/P (MAP) Pulse Ox O2 Delivery O2 Flow Rate FiO2 08/19/17 20:36 98.7 88 16 120/65 (83) 99 Orders Orders Ice/Cold Pack (08/19/17 20:41) Ankle, Limited (Ap&Lat) (08/19/17 20:41) Knee, Ltd (1 Or 2vws) (08/19/17 20:41) Ed Discharge Order (08/19/17 22:44) Ice/Cold Pack (08/19/17 22:44) Splint Or Brace Apply/Monitor (08/19/17 22:44) Crutches (08/19/17 22:44) Ibuprofen (Motrin) (08/19/17 22:45) MDM Medical Decision Making Medical Screen Exam Complete: Yes Emergency Medical Condition: Yes Medical Record Reviewed: Yes Interpretation(s) Right knee: Negative for acute fracture. Right ankle: Negative for acute fracture. Last 24 hours Impressions Knee X-Ray 08/19/172040 Signed Impressions: CONCLUSION: Ankle X-Ray 08/19/172040 Signed Impressions: CONCLUSION: Differential Diagnosis MDM: High Differential diagnoses: Fracture, sprain, strain, dislocation, contusion, neurovascular injury Narrative Course X-rays of the right ankle and right knee are negative for bony injury. She has prior ORIF. Patient is given Motrin 600 mg p.o., ice pack, Papo wrap and knee immobilizer. Crutches. Patient has taken ibuprofen in the past without difficulty. This is right knee sprain, right ankle sprain Diagnosis Primary Impression: Right knee sprain Additional Impression: Right ankle sprain Patient Instructions: General Instructions Additional Instructions: Rest. Elevation. Ice packs for the next 3 days. Papo wrap, knee immobilizer and crutches. No weight-bearing and then progress to weight-bearing as tolerated. Medications as directed Follow-up with an orthopedist or your doctor in one week. Return to the ER if any problems Med/Other Pt SpecificInfo: Prescription(s) given Scripts Ibuprofen (Ibuprofen) 600 Mg Tab 600 MG PO Q8H Y for PAIN, #30 TAB 0 Refills Prov: Victor Hugo Eden MD 08/19/17 Disposition: 01 DISCHARGE HOME Condition: Stable Omar Wilson August 19, 2017 22:51
== END 2017-08-19 23:27 | disposition home or self-care (01) ==
LOC: NEPK 19:56
DX: S83.91XA Sprain of unspecified site of right knee, initial encounter (principal); S93.401A Sprain of unspecified ligament of right ankle, initial encounter; X50.1XXA Overexertion from prolonged static or awkward postures, initial encounter; Y93.02 Activity, running
CPT/HCPCS: 73560; 73600; 99283; E0113; L1830

== ENCOUNTER 2017-09-20 11:13 | Emergency (ER) | payer MEDICAID ==
[~2017-09-20] VITALS: Ht 167.6 cm; Wt 83.5 kg
[2017-09-20 11:15] VITALS: BP 122/80; PULSE 83; RESP 18; TEMP 98.5; O2SAT 100
--- NOTE | 2017-09-20 11:52 | PD ---
HPI Chief Complaint: Pain: Acute or Chronic Time Seen by Provider: 11:43 Travel History International Travel<30 days: No Contact w/Intl Traveler<30days: No Traveled to known affect area: No History of Present Illness HPI 51-year-old female presents emergency department with ongoing right knee and foot pain. She states she was seen 1 month ago and evaluated with x-rays, and referred to orthopedist, and treated with ibuprofen 600 mg 3 times daily. Patient states she went to her orthopedist, who stated she continues to come back and get an MRI. She states her pain improved with the ibuprofen, but she ran out. Patient is waiting to see her primary care physician on 20 October. She states her pain is approximately the same as it was one month ago. Pain is 7 out of 10. There is been no change in her symptoms. She states she is allergic to aspirin, and morphine, but can take NSAIDs. PFSH Past Medical History Arthritis: Yes Autoimmune Disease: Yes (HX HIV) Blood Disorders: No Cancer: No Cardiovascular Problems: No Diminished Hearing: No Endocrine: No Gastrointestinal Disorders: No Genitourinary: No Immune Disorder: No Implanted Vascular Access Dvce: No Musculoskeletal: No Neurologic: Yes Psychiatric: No Reproductive: No Respiratory: No Immunizations Current: No Seizures: Yes Ulcer: Yes PNEUMOCCOCAL Vaccine (Year): 1 : 4 Para: 1 Miscarriage: 3 : 0 Ovarian Cysts: Yes (FIBROID TUMORS REMOVED) Tubal Ligation: Yes Past Surgical History Abdominal Surgery: Yes AICD: No Hysterectomy: Yes Pacemaker: No Other Surgery: No Social History Alcohol Use: No Tobacco Use: No Substance Use: No Allergies-Medications (Allergen,Severity, Reaction): Coded Allergies: aspirin (Unverified Allergy, Intermediate, UPSET STOMACH, 08/19/17) morphine (Unverified Adverse Reaction, Intermediate, HIVES, 08/19/17) Reported Meds & Prescriptions Reported Meds & Active Scripts Active Ibuprofen 600 Mg Tab 600 Mg PO Q8H PRN Robaxin (Methocarbamol) 500 Mg Tab 500 Mg PO TID PRN Mupirocin Topical (Mupirocin) 2 % Oint 1 Applic TOPICAL BID 7 Days Nystatin Topical (Nystatin) 100,000 unit/gm Cream 1 Applic TOPICAL BID 7 Days Medrol Dosepak (Methylprednisolone) 4 Mg Dspk 4 Mg PO DIRECTED Per Pharmacist direction Reported Primidone 50 Mg Tab 250 Mg PO BID Review of Systems Except as stated in HPI: all other systems reviewed are Neg General / Constitutional: No: Fever Eyes: No: Visual changes HENT: No: Headaches Cardiovascular: No: Chest Pain or Discomfort Respiratory: No: Shortness of Breath Gastrointestinal: No: Abdominal Pain Genitourinary: No: Dysuria Musculoskeletal: Positive: Arthralgias, Pain Skin: No Rash Neurologic: No: Weakness Psychiatric: No: Depression Endocrine: No: Polydipsia Hematologic/Lymphatic: No: Easy Bruising Physical Exam Narrative GENERAL: Patient appears in no obvious distress. SKIN: Warm and dry. Normal color. Normal turgor HEAD: Atraumatic. Normocephalic. EYES: Pupils equal and round. No scleral icterus. No injection or drainage. ENT: No nasal bleeding or discharge. Mucous membranes pink and moist. NECK: Trachea midline. Supple per CARDIOVASCULAR: Regular rate and rhythm. RESPIRATORY: No accessory muscle use. Clear to auscultation. Breath sounds equal bilaterally. MUSCULOSKELETAL: Extremities without clubbing, cyanosis, or edema. Patient has pes planus, and bunion on the right more than the left. No significant effusion or swelling is noted. Patient is able to ambulate. No laxity is noted. NEUROLOGICAL: Awake and alert. No obvious cranial nerve deficits. Motor grossly within normal limits. Five out of 5 muscle strength in the arms and legs. Normal speech. PSYCHIATRIC: Appropriate mood and affect; insight and judgment normal. Data Data Last Documented VS Vital Signs Date Time Temp Pulse Resp B/P (MAP) Pulse Ox O2 Delivery O2 Flow Rate FiO2 09/20/17 11:15 98.5 83 18 122/80 (94) 100 [facility] Medical Decision Making Medical Screen Exam Complete: Yes Emergency Medical Condition: Yes Medical Record Reviewed: Yes Differential Diagnosis Right knee pain. Right foot pain. Arthritis. Narrative Course A medical screening exam was performed: At the time of evaluation the presenting medical condition was determined not to be of an emergent nature. The patient was given the option of receiving additional care, but declined. Patient was given options for additional community resources from which to obtain care. The Patient Has Been advised to seek medical attention for their presenting complaint. The patient has been advised to return to the ER at any time if an emergent condition develops. Condition: Stable Jose Vázquez Sep 20, 2017 11:52
== END 2017-09-20 11:56 | disposition left against medical advice (07) ==
LOC: NEPD 11:13
DX: M79.671 Pain in right foot (principal)
CPT/HCPCS: 99281